=== PATIENT | female | born 1985 | race Caucasian/White ===

== ENCOUNTER 2019-11-24 11:35 | Emergency (ER) | payer OTHER ==
[~2019-11-24] VITALS: Ht 172.7 cm; Wt 70.5 kg
--- NOTE | 2019-11-24 12:09 | NUR ---
called Mike Chavarria,spoke with Stuart/dispatch,said JASON will call me for case number,also said they already have a report from yesterday.
--- NOTE | 2019-11-24 12:14 | NUR ---
Incident report obtained from Officer Brennan Incident # [id number]
[2019-11-24] MEDS ORDERED: ketorolac tromethamine 15mg/ml inj. IM ONE (12:50)
[2019-11-24] MEDS ORDERED: orphenadrine citrate 60mg/2ml inj. IM ONE (12:50)
[2019-11-24 13:41] VITALS: BP 111/76
[2019-11-24] MEDS ORDERED: ORPH100T2 PO (13:45)
== END 2019-11-24 13:52 | disposition home or self-care (01) ==
LOC: ER 11:36
DX: S16.1XXA Strain of muscle, fascia and tendon at neck level, initial encounter (principal); M54.2 Cervicalgia; G89.29 Other chronic pain; Z98.890 Other specified postprocedural states; Z79.899 Other long term (current) drug therapy; V87.7XXA Person injured in collision between other specified motor vehicles (traffic), initial encounter; Y93.89 Activity, other specified; Y92.89 Other specified places as the place of occurrence of the external cause; Y99.8 Other external cause status
CPT/HCPCS: 70450; 72125; 96372; 99285; J1885